=== PATIENT | female | born 1930 | race Caucasian/White ===

== ENCOUNTER 2020-04-24 12:10 | Emergency (ER) | payer OTHER ==
--- OUTSIDE RECORDS SUMMARY | 2020-04-24 12:24 | XMS REPORT | Clinical Summary ---
:1930 Author Organization [facility] Address [address] [place] [address] Care Team Providers Name Role Phone Nick Sibley MD Primary Care Provider Unavailable Allergies Active Allergy Reactions Severity Noted Date Comments Calcium Channel Blocking Agent Diltiazem 05/09/2019 Analogues Codeine 05/09/2019 Penicillins 05/02/2019 Sulfa (Sulfonamide Antibiotics) 9 Medications Medication Sig Dispensed Refills Start Date End Date Status cetirizine (ZYRTEC) TK 1 T PO QD 1 03/14/2019 Active 10 MG tablet PRN FOR DRAINAGE montelukast TK 1 T PO QD IN 5 03/22/2019 A ctive (SINGULAIR) 10 mg THE FRANTZ tablet risedronate TK 1 T PO Q WK 4 04/13/2019 Ac tive (ACTONEL) 35 MG IN THE MORNING tablet 30 MIN B FIRST FOOD OR BEVERAGE OR MEDICATION OF DAY fluticasone Inhale 1 puff 0 Acti ve furoate-vilanterol by mouth via (BREO ELLIPTA) inhaler daily. 100-25 mcg/dose DsDv aspirin 81 MG EC Take 81 mg by 0 Active tablet mouth daily. omeprazole Take 20 mg by 0 Activ e (PRILOSEC) 20 MG mouth daily. capsule cholecalciferol, Take 1,000 0 Ac tive vitamin D3, Units by mouth (VITAMIN D3) 1,000 daily. unit capsule MYRBETRIQ 50 mg 03/18/2019 Dis continued Tb24 ER tablet 9 simvastatin (ZOCOR) TK 1 T PO QD IN 03/22/2019 Discontinued 20 MG tablet THE FRANTZ 0 tiZANidine TK 1 T PO HS 4 04/13/2019 Disco ntinued (ZANAFLEX) 4 MG 9 tablet divalproex Take 500 mg by 0 Disc ontinued (DEPAKOTE) 500 MG mouth 3 (three) 9 EC tablet times daily. losartan (COZAAR) Take 100 mg by 0 02 Discontinued 100 MG tablet mouth daily. 0 mirabegron Take by mouth 0 Disco ntinued (MYRBETRIQ) 25 mg daily. 9 Tb24 ER tablet mirabegron Take 1 tablet 90 tablet 1 05/09/2019 Expi red (MYRBETRIQ) 50 mg (50 mg total) 9 Tb24 ER by mouth daily tabletIndications: for 90 days. OAB (overactive bladder) tiZANidine Take 1 tablet 30 tablet 1 05/10/2019 Expi red (ZANAFLEX) 4 MG (4 mg total) by 9 tabletIndications: mouth every 8 Muscle cramps (eight) hours as needed for up to 30 days. divalproex Take 1 tablet 180 tablet 1 05/21/2019 Exp ired (DEPAKOTE) 500 MG (500 mg total) 0 EC by mouth 2 tabletIndications: (two) times Seizures (HCC) daily for 90 days. losartan (COZAAR) Take 1 tablet 90 tablet 0 11/15/2019 02 Discontinued 100 MG (100 mg total) 0 tabletIndications: by mouth daily Essential for 90 days. hypertension, benign simvastatin (ZOCOR) Take 1 tablet 90 tablet 0 11/15/201911/14 Discontinued 20 MG (20 mg total) 0 tabletIndications: by mouth Mixed nightly for 90 hyperlipidemia days. losartan (COZAAR) Take 1 tablet 90 tablet 0 11/15/2019 02 100 MG (100 mg total) 0 tabletIndications: by mouth daily Essential for 90 days. hypertension, benign simvastatin (ZOCOR) Take 1 tablet 90 tablet 0 11/15/201902/12 20 MG (20 mg total) 0 tabletIndications: by mouth Mixed nightly for 90 hyperlipidemia days. Active Problems Problem Noted Date Senile osteoporosis 05/03/2019 Hyperlipemia 05/03/2019 Essential hypertension, benign 05/03/2019 Gastroesophageal reflux disease without esophagitis COPD (chronic obstructive pulmonary disease) 9 Complex partial epilepsy, intractable 05/03/2019 Senile dementia, uncomplicated 05/03/2019 Encounters Date Type Specialty Care Team Description 01/17/2020 Refill Family Charles Valdez Jr., MD 12/15/2019 Refill Family Charles Valdez Jr., MD 11/15/2019 Orders Only Family Charles Valdez Essential hy pertension, benign; Nick Tom MD Mixed hyperli pidemia 11/15/2019 Orders Only Charles Monahan Mixed hyperl ipidemia (Primary Dx); Nick Tom MD Essential hyp ertension, benign 11/15/2019 Telephone Family Charles Valdez Medication Kisha Romero Jr., MD 05/21/2019 Orders Only Charles Monahan Seizures (HC C) Nick Tom MD (Primary Dx) 05/16/2019 Hospital Encounter Radiology Charles Sibley Screening mammogram, Nick Tom MD encounter for 05/16/2019 Outside Orders Central Scheduling Audi Waddell ng mammogram, Lorraine V encounter for ( Primary Dx) 05/11/2019 Telephone Family Charles Valdez Jr., MD 05/10/2019 Telephone Family Charles Valdez Jr., MD 05/09/2019 Office Visit Family Charles Valdez Sebaceous [facility] (Primary Dx); Nick Tom MD OAB (overacti ve bladder) 05/05/2019 Abstract Family Medicine Charles Sibley Jr., MD 05/02/2019 Abstract Family Medicine Charles Sibley Jr., MD after 04/24/2019 Family History Medical History Relation Name Comments Coronary artery disease Father Coronary artery disease Mother Relation Name Status Comments Father Mother Social History Tobacco Use Types Packs/Day Years Used Date Former Smoker Smokeless Tobacco: Never Used Alcohol Use Drinks/Week oz/Week Comments No Alcohol Habits Answer Date Recorded How often do you have a drink containing alcohol? Never 05/09/2019 How many drinks containing alcohol do you have on a typical Not asked day when you are drinking? How often do you have six or more drinks on one occasion? No t asked Sex Assigned at Date Recorded Not on file Job Start Date Occupation Industry Not on file Not on file Not on file Travel History Travel Start Travel End No recent travel history available. Last Filed Vital Signs Vital Sign Reading Time Taken Blood Pressure 90/78 05/09/2019 11:41 AM CDT Pulse 87 05/09/2019 11:41 AM CDT Temperature - - Respiratory Rate - - Oxygen Saturation 97% 05/09/2019 11:41 AM CDT Inhaled Oxygen Concentration - - Weight 53.5 kg (118 lb) 05/09/2019 11:41 AM CDT Height 157.5 cm (5' 2") 05/09/2019 11:41 AM CDT Body Mass Index 21.58 05/09/2019 11:41 AM CDT Plan of Treatment Not on file Procedures Procedure Name Priority Date/Time Associated Diagnosis Comme nts MM DIGITAL MAMMO Routine 05/16/2019 1:39 PM Screening mammogr am, Results for this SCREEN WITH BHAVANA CDT encounter for procedure are in BILATERAL the results section. after 04/24/2019 Results MM digital mammo screen with bhavana bilateral (05/16/2019 1:39 PM CDT) Specimen Narrative Performed At R[facility] #[id number] - MM, DIGITAL, MAMMO, SCREENIN G, WITH BHAVANA, BILATERAL INCLUDING CAD BILATERAL DIGITAL SCREENING MAMMOGRAM 3D /2D WITH CAD: 05/16/2019 CLINICAL: Routine screening mammogram. No prior films are available for compari son. Lack of availability of prior films for comparison reduces the s ensitivity of mammography. The tissue of both breasts is heterogene ously dense. This may lower the sensitivity of mammography. Tomosynthesis 3D imaging of the breast w as also performed. Current study was also evaluated with a Computer Aided Detection (CAD) system. There are benign vascular calcifications in both breasts. No significant masses, calcifications, o r other findings are seen in either breast. IMPRESSION: BENIGN There is no mammographic evidence of mal ignancy. A 1 year screening mammogram is recommended. Michael Streeter M.D. as/penrad:05/17/2019 18:50:06 Normal BiRad 1-2 Mammogram BI-RADS: 2 Benign Procedure Note Interface, External Ris In - 05/18/2019 7:21 AM CDT #[id number] - MM, DIGITAL, MAMMO, SCREENIN G, WITH BHAVANA, BILATERAL INCLUDING CAD BILATERAL DIGITAL SCREENING MAMMOGRAM 3D /2D WITH CAD: 05/16/2019 CLINICAL: Routine screening mammogram. No prior films are available for compari son. Lack of availability of prior films for comparison reduces the s ensitivity of mammography. The tissue of both breasts is heterogene ously dense. This may lower the sensitivity of mammography. Tomosynthesis 3D imaging of the breast w as also performed. Current study was also evaluated with a Computer Aided Detection (CAD) system. There are benign vascular calcifications in both breasts. No significant masses, calcifications, o r other findings are seen in either breast. IMPRESSION: BENIGN There is no mammographic evidence of mal ignancy. A 1 year screening mammogram is recommended. Michael Streeter M.D. as/penrad:05/17/2019 18:50:06 Normal BiRad 1-2 Mammogram BI-RADS: 2 Benign Performing Organization Address City/State/Zipcode Phone Number GE RIS after 04/24/2019 Insurance Payer Benefit Plan / Group Subscriber ID Type Phone A ddress HUMANA - MEDICARE MGD HUMANA MEDICARE ADV xxxxxxxxx Maps Contracted CARE [place] MEDICAID MEDICAID [place] xxxxxxxxx
--- OUTSIDE RECORDS SUMMARY | 2020-04-24 12:24 | XMS REPORT | Continuity of Care Document ---
:1930 Author Organization [facility] t Address [address] [place] [address] Care Team Providers Name Role Phone Toñito LUCAS, Nick Primary Care Physician Unavailable Toñito LUCAS, Nick Attending Clinician Bairon Attending Clinician Unavailable Payers Payer Name Policy Type Policy Number Effective Date Expiration Source Date HUMANA - MEDICARE MGD xxxxxxxxx [facility] CAREHUMANA MEDICARE [facility] ADVxxxxxxxxx[facility] Contracted Center CHUA xxxxxxxxx [facility] MEDICAIDMEDICAID [facility] - MOLINAxxxxxxxxx Medical Center Problems Condition Condition Condition Status Onset Resolution Last Treating Co mments Source Name Details Category Date Date Treatment Clinician Date Senile Senile Disease Active [facility] osteoporos osteoporos 05-03 Emeli kes - is is 00:00: Medical 00 [place] Hyperlipem Hyperlipem Disease Active [facility] ia ia 05-03 [facility] - 00:[facility]: Medical 00 [place] Essential Essential Disease Active [facility] hypertensi hypertensi 05-03 Emeli kes - on, benign on, benign 00:00: Me dical 00 Center Gastroesop Gastroesop Disease Active [facility] hageal hageal 05-03 [facility] - reflux reflux 00:00: Medical disease disease 00 Center without without esophagiti esophagiti s s COPD COPD Disease Active [facility] (chronic (chronic 05-03 [facility] - obstructiv obstructiv 00:00: Me dical e e 00 Center pulmonary pulmonary disease) disease) Complex Complex Disease Active [facility] partial partial 05-03 [facility] - epilepsy, epilepsy, 00:00: Medi raudel intractabl intractabl 00 Ce nter e e Senile Senile Disease Active [facility] dementia, dementia, 05-03 Luke s - uncomplica uncomplica 00:00: Me keyonna goldman 00 Center Allergies, Adverse Reactions, Alerts Allergy Allergy Status Severity Reaction(s) Onset Inactive Treating Comm ents Source Name Type Date Date Clinician Calcium Propensi Active [facility] Channel ty to 05-09 [facility] - Blocking adverse 00:00: Medical Agent reaction 00 Center Diltiaze s m Analogue s Codeine Propensi Active [facility] ty to 05-09 [facility] - adverse 00:00: Medical reaction 00 Center s Penicill Propensi Active [facility] ins ty to 05-02 [facility] - adverse 00:00: Medical reaction 00 Center s Sulfa Propensi Active [facility] (Sulfona ty to 05-02 [facility] - mide adverse 00:00: Medical Antibiot reaction 00 Center ics) s Family History Family Member Diagnosis Comments Start Date Stop Date Source Natural father Coronary artery [facility] S t [facility] disease [facility] Natural mother Coronary artery [facility] S t [facility] disease [facility] Social History Social Habit Start Date Stop Date Quantity Comments Source History SDOH Alcohol [facility] Std Drinks [facility] History MSOH Alcohol [facility] Binge [facility] Sex Assigned At [facility] History SDOH Alcohol 2019-05-09 2019-05-[address] [facility] [facility] - Frequency 00:00:00 00:00:00 [facility] Center Smoking Status Start Date Stop Date Source Former smoker 2019-05-09 00:00:00 2019-05-09 00:00:00 [facility] Medications Ordered Filled Start Stop Current Ordering Indication Dosage Frequency Signature Comments Components Source Medication Medication Date Date Medication? Clinician (SIG) Name Name losartan 2019- No 100mg QD Take [address] [facility] (COZAAR) 11-14 03-31 mg by [facility] - 100 MG 18:19: 00:00 mouth Medical tablet 59 :00 daily. Center losartan 2019- No Essential 100mg QD Take [address] [facility] (COZAAR) 11-14-29 hypertensio tablet L ukes - 100 MG 00:00: 23:59 n, benign (100 mg Me dical tablet 00 :00 total) by Center mouth daily for 90 days. simvastatin 2019- No Mixed 20mg QD Take [address] (ZOCOR) 20 11-1429 hyperlipide tablet (20 [facility] - MG tablet 00:00: 23:59 penelope mg total) Me dical 00 :00 by mouth Center nightly for 90 days. losartan 2019- No Essential 100mg QD Take [address] [facility] (COZAAR) 11-14 hypertensio tablet L ukes - 100 MG 00:00: 00:00 n, benign (100 mg Me dical tablet 00 :00 total) by Center mouth daily for 90 days. simvastatin No Mixed 20mg QD Take [address] (ZOCOR) 11-14 hyperlipide tablet (20 [facility] - MG tablet 00:00: 00:00 penelope mg total) Me dical 00 :00 by mouth Center nightly for 90 days. divalproex 2018-08- No 500mg [id number] Take [address] [facility] (DEPAKOTE) 0-05 10-05 [id number] mg by L ukes - 500 MG EC 06:19: 00:00 3D mouth 3 Medi raudel tablet 04 :00 (three) Center times daily. divalproex 2018-08- No Seizures 500mg Q.5D Take [address] [facility] (DEPAKOTE) 0-05 01-03 (HCC) tablet [facility] - 500 MG EC 00:00: 23:59 (500 mg Medi raudel tablet 00 :00 total) by Center mouth 2 (two) times daily for 90 days. tiZANidine 2018- No Muscle 4mg Take [address] (ZANAFLEX) 05-10 cramps tablet (4 L ukes - 4 MG tablet 00:00: 23:59 mg total) Medical 00 :00 by mouth Center every 8 (eight) hours as needed for up to 30 days. mirabegron 2018- No QD Take by [facility] (MYRBETRIQ) 05-09 09-23 mouth [facility] - 25 mg Tb24 12:24: 00:00 daily. Medi raudel ER tablet 02 :00 Center mirabegron 2019-0 2019- No OAB 50mg QD Take [address] [facility] (MYRBETRIQ) 05-09 12-22 (overactive tablet (50 [facility] - 50 mg Tb24 00:00: 23:59 bladder) mg total) Medical ER tablet 00 :00 by mouth Center daily for 90 days. cholecalcif Yes 1000U QD Take 1,[address] [facility] [address] dulce, 9-16 Units by [facility] - vitamin D3, 09:51: mouth Medic al (VITAMIN 21 daily. [place] D3) 1,000 unit capsule fluticasone Yes 1{puff} QD Inhale [address] furoate-emmy -16 puff by [facility] - anterol 09:51: mouth via Medic al (BREO 20 inhaler Center ELLIPTA) daily. 100-25 mcg/dose DsDv aspirin 81 Yes 81mg QD Take [address] MG EC 16 by mouth [facility] - tablet 09:51: daily. Medical 20 [place] omeprazole Yes 20mg QD Take [address] (PRILOSEC) 916 by mouth [facility] - 20 MG 09:51: daily. Medical capsule 20 [place] risedronate Yes TK [address] [facility] (ACTONEL) 8-28 Q WK IN [facility] - 35 MG 00:00: THE Medical tablet 00 MORNING Center 30 MIN B FIRST FOOD OR BEVERAGE OR MEDICATION OF DAY tiZANidine 2019- No TK [address] [facility] (ZANAFLEX) 04-13 09-24 HS [facility] - 4 MG tablet 00:00: 00:00 Medic al 00 :00 [place] montelukast Yes TK [address] [facility] (SINGULAIR) 8 QD IN THE Margarito es - 10 mg 00:00: FR[facility]Z Medical tablet 00 Center simvastatin 2020- No TK [address] [facility] (ZOCOR) 20 8 03-31 QD IN THE Margarito es - MG tablet 00:00: 00:00 [facility] Medical 00 :00 [place] MYRBETRIQ 2019- No [facility] 50 mg Tb24 03-18 0923 [facility] - ER tablet 00:00: 00:00 Medical 00 :00 [place] cetirizine Yes TK [address] [facility] [address] [facility] (ZYRTEC) 10 7-29 QD PRN FOR Emeli kes - MG tablet 00:00: DRAINAGE [address] Vital Signs Vital Name Observation Time Observation Value Comments Source Systolic blood 2019-05-09 11:41:00 90 mm[Hg] [facility] Diastolic blood 2019-05-09 11:41:00 78 mm[Hg] [facility] Heart rate 2019-05-09 11:41:00 87 /min [facility] Body height 2019-05-09 11:41:00 157.5 cm [facility] Body weight Measured 2019-05-09 11:41:00 53.524 kg [facility] BMI 2019-05-09 11:41:00 21.58 kg/m2 [facility] Oxygen saturation in 2019-05-09 11:41:00 97 /min [facility] Arterial blood by Medical Ce nter Pulse oximetry Procedures Procedure Date / Time Performed Performing Clinician Sourc e MM DIGITAL MAMMO 2019-05-16 13:39:00 Charles Sibley [facility] - SCREEN WITH [facility] BILATERAL Results Test Description Test Time Test Comments Results Result Sourc e Comments MM, DIGITAL, Diagnostic MRN#: MAMMO, 1 workup per [id number] - SCREENING, WITH 18:50:00 radiologist?->N MM, DIGITAL, MAMMO, BHAVANA, BILATERAL oReason for SCREENING, WITH INCLUDING CAD Exam:->screenin BHAVANA, BILATERAL g mammogram INCLUDING CADBILATERAL DIGITAL SCREENING MAMMOGRAM 3D/2D WITH CAD: 05/16/2019CLINICAL: Routine screening mammogram. No prior films are available for comparison. Lack of availability of prior films for comparison reduces the sensitivity of mammography. The tissue of both breasts is heterogeneously dense. This may lower the sensitivity of mammography. Tomosynthesis 3D imaging of the breast was also performed. Current study was also evaluated with a Computer Aided Detection (CAD) system. There are benign vascular calcifications in both breasts. No significant masses, calcifications, or other findings are seen in either breast. IMPRESSION: BENIGNThere is no mammographic evidence of malignancy. A 1 year screening mammogram is recommended. Michael lopez/penrad:05/17/2019 18:50:06 Normal BiRad 1-2 Mammogram BI-RADS: 2 Benign digital mammo Interface, External [facility] screen with bhavana 1 Ris In - 05/18/2019 - Medical bilateral 18:50:00 7:21 AM [facility] [place] [id number] - MM, DIGITAL, MAMMO, SCREENING, WITH BHAVANA, BILATERAL INCLUDING CADBILATERAL DIGITAL SCREENING MAMMOGRAM 3D/2D WITH CAD: 05/16/2019CLINICAL: Routine screening mammogram. No prior films are available for comparison. Lack of availability of prior films for comparison reduces the sensitivity of mammography. The tissue of both breasts is heterogeneously dense. This may lower the sensitivity of mammography. Tomosynthesis 3D imaging of the breast was also performed. Current study was also evaluated with a Computer Aided Detection (CAD) system. There are benign vascular calcifications in both breasts. No significant masses, calcifications, or other findings are seen in either breast. IMPRESSION: BENIGNThere is no mammographic evidence of malignancy. A 1 year screening mammogram is recommended. Michael Streeter M.D. as/penrad:05/17/2019 18:50:06 Normal BiRad 1-2 Mammogram BI-RADS: 2 Benign
[2020-04-24 13:19] LABS: Urine Bacteria <20 /HPF (<20); Urine RBC <5 /HPF (NONE SEEN)
[2020-04-24 13:20] LABS: Urine Culture Reflex Order NOT NEEDED
[2020-04-24 13:20] LABS: Urine Blood TRACE (NEG); Urine Glucose NEGATIVE (NEG); Urine Protein NEGATIVE (NEG)
--- NOTE | 2020-04-24 14:36 | RAD REPORT ---
EXAM DESCRIPTION: CT - [place] Protocol - 04/24/2020 2:17 pm CLINICAL HISTORY: low back pain COMPARISON: No comparisons TECHNIQUE: Axial [address] imaging of the abdomen and pelvis was performed without IV contrast. No IV contrast was given because of allergy, abnormal renal function, patient refusal or physician re quest. No oral contrast administered. All CT scans are performed using dose optimization technique as appropriate and may include automated exposure control or mA/KV adjustment according to patient size. FINDINGS: Trace amount of pleural fluid in the posterior gutter on the right. No acute lung base fin ding. Minimal areas of nodularity are present in the left gutter, nonspecific. Patient has pericardial effusion up to 19 mm in thickness along the right lateral heart border. Lower thoracic aortic aneurysm is present measuring 4.4 cm AP x 6.2 cm TR. The transverse diameter ma y be exaggerated due to vessel tortuosity. The aorta tapers to 2.9 cm x 2.9 cm at the superior mesent carlie artery. Abdominal aorta shows prominent calcification and mild tortuosity but no worrisome aneur ysmal dilatation. No iliac artery aneurysm seen. The liver, spleen and pancreas show no suspicious findings on non-contrast imaging. Gallbladder and b iliary tree are also without suspicious finding. No hydronephrosis or suspicious renal mass. No significant adrenal finding. Isodense renal masses an d pyelonephritis cannot be excluded in the absence of IV contrast. The urinary bladder is without sig nificant finding. No gastric dilatation or wall thickening. No dilated large or small bowel loops. Mild for age sigmoid diverticulosis without diverticulitis. No acute findings identified. No free air or pneumatosis. Trace amount of free fluid seen in the dependent portion of the pelvis. No hernia, mass or bulky lymphadenopathy. Disc and bony degenerative changes are present. Patient has advanced degenerative disc disease at L5- S1. There is concavity to the inferior endplate L2. Canal is stenotic at L4-5 from disc bulge and fac et hypertrophy. L3-4 borderline to mild central spinal stenosis also present. Aortic findings telephoned to the referring clinician [id number] hours. IMPRESSION: Lower thoracic aortic aneurysm measuring 4.4 x 6.2 cm. The transverse diameter may be ex aggerated due to tortuosity of the aorta. No abdominal aortic aneurysm or significant aortic finding seen. Vascular assessment is limited in the absence of contrast. Follow-up contrast imaging may be needed t o further assess the aortic finding. Pericardial effusion up to 19 mm in thickness along the right heart border. Lumbar disc and bony degenerative change with central spinal stenosis at L3-4 and L4-5. Full assessment is limited is the absence of IV contrast.
--- NOTE | 2020-04-24 14:45 | EDPHYS ---
Physician Documentation [facility] Name: Doris Pardo Age: 89 yrs Sex: Female : 1930 Arrival Date: 04/24/2020 Time: 12:16 Bed 2 Private MD: ED Physician Jak Olmedo HPI: 04/24 14:18 This 89 yrs old Female presents to ER via Ambulatory with complaints of Back rn Pain. 14:18 The patient presents with pain that is acute, with no known mechanism of injury. The rn symptoms are located in the low back. Onset: The symptoms/episode began/occurred last night. The pain does not radiate. Associated signs and symptoms: Pertinent positives: none Pertinent negatives: abdominal pain, chest pain, fever, urinary retention, weakness. Modifying factors: The patient symptoms are alleviated by nothing, the patient symptoms are aggravated by any movement. Severity of symptoms: At their worst the symptoms were mild, in the emergency department the symptoms are unchanged. The patient has not experienced similar symptoms in the past. The patient has not recently seen a physician. Reports lower back pain, began last night, no injury, feels like might have urine infection, reports increased frequency but no dysuria. No fever. No chest or abd pain. Hurts lower back to twist and bendover. . Historical: - Allergies: 12:31 calcium; ll1 12:31 Sulfa (Sulfonamide Antibiotics); ll1 12:31 PENICILLINS; ll1 12:31 Codeine; ll1 - PMHx: 12:31 Hypertension; High Cholesterol; ll1 - PSHx: 12:31 Knee surgery; Hysterectomy; ll1 - Immunization history:: Flu vaccine is not up to date. - Social history:: Smoking status: Patient denies any tobacco usage or history of. - Family history:: not pertinent. - Hospitalizations: : No recent hospitalization is reported. ROS: 14:18 Constitutional: Negative for fever, chills, and weight loss, Eyes: Negative for injury, rn pain, redness, and discharge, Cardiovascular: Negative for chest pain, palpitations, and edema, Respiratory: Negative for shortness of breath, cough, wheezing, and pleuritic chest pain, Abdomen/GI: Negative for abdominal pain, nausea, vomiting, diarrhea, and constipation, Back: Negative for injury : + increased urinary frequency MS/Extremity: Negative for injury and deformity, Skin: Negative for injury, rash, and discoloration, Neuro: Negative for headache, weakness, numbness, tingling, and seizure. Exam: 14:18 Constitutional: This is a well developed, well nourished patient who is awake, alert, rn and in no acute distress. Head/Face: Normocephalic, atraumatic. Cardiovascular: Regular rate and rhythm. No pulse deficits. Respiratory: No increased work of breathing, no retractions or nasal flaring. Abdomen/GI: Soft, non-tender Back: No spinal tenderness. No costovertebral tenderness. Full range of motion. MS/ Extremity: Pulses equal, no cyanosis. Neurovascular intact. Full, normal range of motion. Equal circumference. Neuro: Awake and alert, GCS 15, oriented to person, place, time, and situation. Cranial nerves II-XII grossly intact. Motor strength 5/5 in all extremities. Sensory grossly intact. Cerebellar exam normal. Vital Signs: 12:28 BP 140 / 103; Pulse 92; Resp 17; Temp 98.5; Pulse Ox 96% ; Pain 8/10; ll1 MDM: 12:33 Patient medically screened. rn 14:42 Differential diagnosis: UTI, radiculopathy, spinal problems, AAA. Data reviewed: vital rn signs, nurses notes, lab test result(s), radiologic studies, CT scan, and as a result, I will discharge patient. Counseling: I had a detailed discussion with the patient and/or guardian regarding: the historical points, exam findings, and any diagnostic results supporting the discharge/admit diagnosis, lab results, radiology results, the need for outpatient follow up, to return to the emergency department if symptoms worsen or persist or if there are any questions or concerns that arise at home. Special discussion: I discussed with the patient/guardian in detail that at this point there is no indication for admission to the hospital. It is understood, however, that if the symptoms persist or worsen the patient needs to return immediately for re-evaluation. ED course: Per Dr. Davey, incidental thoracic aortic aneurysm, but no acute abdominal pathology seen to explain lower back pain with movement. NO traumatic findings. Will treat with abx and told to f/u for serial examination of anuerysm. . 04/24 12:34 Order name: Urine Culture rn 04/24 12:34 Order name: Urine Microscopic Only; Complete Time: 13:56 rn 04/24 13:04 Order name: Urine Dipstick--Ancillary (enter results) em1 04/24 13:04 Order name: Urine Dipstick-Ancillary; Complete Time: 13:56 EDMS 04/24 13:56 Order name: CT Stone Protocol; Complete Time: 14:40 rn 04/24 12:34 Order name: Urine Dipstick-Ancillary (obtain specimen); Complete Time: 13:03 rn Administered Medications: 14:45 Drug: Demerol 25 mg Route: IM; Site: right deltoid; sv 15:16 Follow up: Response: No adverse reaction; Medication administered at discharge.; RASS: sv Alert and Calm (0) Disposition: 04/24/20 14:45 Discharged to Home. Impression: Low back pain, Urinary tract infection, site not specified, Thoracic aortic aneurysm, without rupture. - Condition is Stable. - Discharge Instructions: Thoracic Aortic Aneurysm, Back Pain, Adult, Urinary Tract Infection, Adult. - Prescriptions for Macrobid 100 mg Oral Capsule - take 1 capsule by ORAL route every 12 hours for 7 days; 14 capsule. - Medication Reconciliation Form, Thank You Letter, Antibiotic Education, Prescription Opioid Use form. - Follow up: Private Physician; When: As needed; Reason: Recheck today's complaints, Re-evaluation by your physician. Follow up: Martell Solo MD; When: 1 week; Reason: Recheck today's complaints, Re-evaluation by your physician. - Problem is new. - Symptoms are unchanged. Signatures: Dispatcher [employer] Kianna Xiong RN RN sv Nieto, Roman, MD MD rn Lewis, Lynsay, RN RN ll1 Corrections: (The following items were deleted from the chart) 14:51 14:45 04/24/2020 14:45 Discharged to Home. Impression: Low back pain; Urinary tract rn infection, site not specified; Thoracic aortic aneurysm, without rupture. Condition is Stable. Forms are Medication Reconciliation Form, Thank You Letter, Antibiotic Education, Prescription Opioid Use. Follow up: Private Physician; When: As needed; Reason: Recheck today's complaints, Re-evaluation by your physician. Problem is new. Symptoms are unchanged. rn 15:18 14:51 04/24/2020 14:45 Discharged to Home. Impression: Low back pain; Urinary tract sv infection, site not specified; Thoracic aortic aneurysm, without rupture. Condition is Stable. Discharge Instructions: Thoracic Aortic Aneurysm, Back Pain, Adult, Urinary Tract Infection, Adult. Prescriptions for Macrobid 100 mg Oral Capsule - take 1 capsule by ORAL route every 12 hours for 7 days; 14 capsule. and Forms are Medication Reconciliation Form, Thank You Letter, Antibiotic Education, Prescription Opioid Use. Follow up: Private Physician; When: As needed; Reason: Recheck today's complaints, Re-evaluation by your physician. Follow up: Martell Solo; When: 1 week; Reason: Recheck today's complaints, Re-evaluation by your physician. Problem is new. Symptoms are unchanged. rn
--- NOTE | 2020-04-24 14:45 | ER ---
Nurse's Notes [facility] Name: Doris Pardo Age: 89 yrs Sex: Female : 1930 Arrival Date: 04/24/2020 Time: 12:16 Bed 2 Private MD: Diagnosis: Low back pain;Urinary tract infection, site not specified;Thoracic aortic aneurysm, without rupture Presentation: 04/24 12:28 Chief complaint: Patient states: Low back pain since last night. No fever. No N/V/D. ll1 States she thinks her back might hurt because of a kidney infection, denies dysuria. Coronavirus screen: Client denies travel out of the [place] in the last 14 days. At this time, the client does not indicate any symptoms associated with coronavirus-19. Ebola Screen: Patient denies travel to an Ebola-affected area in the 21 days before illness onset. Initial Sepsis Screen: Does the patient meet any 2 criteria? No. Patient's initial sepsis screen is negative. Risk Assessment: Do you want to hurt yourself or someone else? Patient reports no desire to harm self or others. Onset of symptoms was April 23, 2020. 12:28 Method Of Arrival: Ambulatory ll1 12:28 Acuity: AMBROSE 3 ll1 13:00 Initial Sepsis Screen: Does the patient have a suspected source of infection? No. sv Patient's initial sepsis screen is negative. Historical: - Allergies: 12:31 calcium; ll1 12:31 Sulfa (Sulfonamide Antibiotics); ll1 12:31 PENICILLINS; ll1 12:31 Codeine; ll1 - PMHx: 12:31 Hypertension; High Cholesterol; ll1 - PSHx: 12:31 Knee surgery; Hysterectomy; ll1 - Immunization history:: Flu vaccine is not up to date. - Social history:: Smoking status: Patient denies any tobacco usage or history of. - Family history:: not pertinent. - Hospitalizations: : No recent hospitalization is reported. Screenin:41 Abuse screen: Denies threats or abuse. Denies injuries from another. Nutritional sv screening: No deficits noted. Tuberculosis screening: No symptoms or risk factors identified. Fall Risk None identified. Assessment: 13:00 General: Appears in no apparent distress. uncomfortable, slender, Behavior is calm, sv cooperative, appropriate for age. Pain: Complains of pain in low back area Pain currently is 8 out of 10 on a pain scale. Is continuous. Neuro: Level of Consciousness is awake, alert, obeys commands, Oriented to person, place, time, situation, Moves all extremities. Full function Gait is steady, with her walker. Respiratory: Respiratory effort is even, unlabored, Respiratory pattern is regular, symmetrical. GI: Patient currently denies nausea, vomiting. Derm: Skin is pink, warm \T\ dry. Musculoskeletal: Range of motion: intact in all extremities. 13:48 Reassessment: Dr Olmedo at bedside speaking with the pt. sv 14:00 Reassessment: Patient appears in no apparent distress at this time. No changes from sv previously documented assessment. Patient and/or family updated on plan of care and expected duration. Pain level reassessed. Patient is alert, oriented x 3, equal unlabored respirations, skin warm/dry/pink. 15:17 Reassessment: Patient appears in no apparent distress at this time. No changes from sv previously documented assessment. Patient and/or family updated on plan of care and expected duration. Pain level reassessed. Patient is alert, oriented x 3, equal unlabored respirations, skin warm/dry/pink. Vital Signs: 12:28 BP 140 / 103; Pulse 92; Resp 17; Temp 98.5; Pulse Ox 96% ; Pain 8/10; ll1 ED Course: 12:16 Patient arrived in ED. mr 12:30 Triage completed. ll1 12:31 Arm band placed on Patient placed in an exam room, on a stretcher. ll1 12:33 Jak Olmedo MD is Attending Physician. rn 12:41 Kianna Hensley RN is Primary Nurse. sv 12:41 ED physician to see patient. sv 12:41 Patient has correct armband on for positive identification. Bed in low position. Call sv light in reach. Door closed. Head of bed elevated. 13:44 Urine Dipstick--Ancillary (enter results) Sent. sv 14:[address] Scan. sv 14:17 CT Stone Protocol In Process Unspecified. EDMS 14:22 Patient moved back from CT. sv 14:22 Awaiting radiology results. sv 14:51 Martell Solo MD is Referral Physician. rn 15:17 No provider procedures requiring assistance completed. Patient did not have IV access sv during this emergency room visit. Administered Medications: 14:45 Drug: Demerol 25 mg Route: IM; Site: right deltoid; sv 15:16 Follow up: Response: No adverse reaction; Medication administered at discharge.; RASS: sv Alert and Calm (0) Outcome: 14:45 Discharge ordered by . rn 15:17 Discharged to home ambulatory, with her walker sv 15:17 Condition: stable 15:17 Discharge instructions given to patient, Instructed on discharge instructions, follow up and referral plans. medication usage, Demonstrated understanding of instructions, follow-up care, medications, Prescriptions given X 1. 15:18 Patient left the ED. sv Signatures: Dispatcher [employer] EDMS Kianna Hensley RN Jacqueline Travis Roman, MD MD rn Lewis, Lynsay, RN RN ll1
[2020-04-24] MEDS ORDERED: MEPERIDINE HCL 50 MG/ML ONE (14:56)
[2020-04-24 18:29] VITALS: BP 140/103; TEMP 98.5; O2SAT 96
== END 2020-04-24 15:18 | disposition home or self-care (01) ==
LOC: ER 12:10
DX: N39.0 Urinary tract infection, site not specified (principal); I71.2 Thoracic aortic aneurysm, without rupture; I10 Essential (primary) hypertension; E78.00 Pure hypercholesterolemia, unspecified; Z88.0 Allergy status to penicillin; Z88.2 Allergy status to sulfonamides; Z88.5 Allergy status to narcotic agent; Z91.018 Allergy to other foods
CPT/HCPCS: 87088; 87086; 76377; 74176; 96372; 99284; J2175; 81003; 81015